=== PATIENT | female | born 1985 | race Caucasian/White ===

== ENCOUNTER → 2017-01-30 | Outpatient (CLI) | payer BC ==
[2017-01-30 17:24] LABS: HEMATOCRIT 33.8 % (36.0-47.0); HEMOGLOBIN 11.8 g/dL (12.0-15.5); HGB HCT DIFFERENCE 1.6; MEAN CORPUSCULAR HEMOGLOBIN 31.7 pg (27.0-33.4); MEAN CORPUSCULAR HGB CONC 34.9 g/dL (32.0-36.0); MEAN CORPUSCULAR VOLUME 91 fl (80-97); RED BLOOD COUNT 3.72 10^6/uL (3.72-5.28); RED CELL DISTRIBUTION WIDTH 12.6 % (11.5-14.0); WHITE BLOOD COUNT 17.2 10^3/uL (4.0-10.5)
[2017-01-30 17:47] LABS: ASPARTATE AMINO TRANSFERASE 28 U/L (14-36); CREATININE RESULT 0.69 mg/dL (0.52-1.25); LDH 457 U/L (313-618); URIC ACID 5.1 mg/dL (2.5-6.2)
== END ==
LOC: OD 16:30
PROVIDERS: ATTEND Obstetrics & Gynecology
DX: O16.9 Unspecified maternal hypertension, unspecified trimester (principal); O30.009 Twin pregnancy, unspecified number of placenta and unspecified number of amniotic sacs, unspecified trimester
CPT/HCPCS: 36415; 82565; 83615; 84450; 84550; 85027

== ENCOUNTER 2017-02-16 16:47 | Inpatient (IN) | payer BC ==
[2017-02-16 17:50] LABS: AMNISURE (ROM) POSITIVE (NEGATIVE)
[2017-02-16] MEDS ORDERED: BETAMET ACET/BETAMET NA INJ 6 MG/1 ML IM ONE (18:10)
[2017-02-16 18:25] LABS: ABSOLUTE BASOPHILS # (AUTO) 0.1 10^3/uL (0.0-0.2); ABSOLUTE EOSINOPHILS # (AUTO) 0.1 10^3/uL (0.0-0.6); ABSOLUTE LYMPHOCYTES (AUTO) 1.8 10^3/uL (0.5-4.7); ABSOLUTE MONOCYTES (AUTO) 0.6 10^3/uL (0.1-1.4); ABSOLUTE NEUT (AUTO) 11.4 10^3/uL (1.7-8.2); BASOPHILS % (AUTO) 0.4 % (0-2); EOSINOPHILS % (AUTO) 0.7 % (0-6); HEMATOCRIT 32.2 % (36.0-47.0); HEMOGLOBIN 11.3 g/dL (12.0-15.5); HGB HCT DIFFERENCE 1.7; LYMPHOCYTES % (AUTO) 13.2 % (13-45); MEAN CORPUSCULAR HEMOGLOBIN 31.3 pg (27.0-33.4); MEAN CORPUSCULAR VOLUME 89 fl (80-97); MONOCYTES % (AUTO) 4.1 % (3-13); RED BLOOD COUNT 3.61 10^6/uL (3.72-5.28); RED CELL DISTRIBUTION WIDTH 12.8 % (11.5-14.0); SEGMENTED NEUTROPHILS % (AUTO) 81.6 % (42-78)
[2017-02-16] MEDS ORDERED: MAGNESIUM SULFATE 4 GM/100 ML RTUPB IV ONE ×2 (18:25→19:07)
[2017-02-16] MEDS ORDERED: ERYTHROMYCIN INJ 500 MG VIAL IV SCH (18:30)
[2017-02-16] MEDS ORDERED: AMPICILLIN SOD INJ 2 GM VIAL IV ONE (19:00)
[2017-02-16] MEDS ORDERED: BETAMET ACET/BETAMET NA INJ 6 MG/1 ML ONE (19:07)
[2017-02-16] MEDS ORDERED: AMPICILLIN SOD INJ 2 GM VIAL ONE (19:07)
--- NOTE | 2017-02-16 19:58 | RADIOLOGY REPORT (SQ) ---
EXAM DESCRIPTION: U/S OB LIMITED COMPLETED DATE/TIME: 02/16/2017 7:25 pm REASON FOR STUDY: twin gest--Ruptured--presentation of infants pleas COMPARISON: None. TECHNIQUE: Limited transabdominal grayscale ultrasound for evaluation of specific requested obstetri anamaria parameters. LIMITATIONS: None. FINDINGS: Twin A FHR: 150 beats per minute. Vertex presentation. Twin B FHR: 141 beats per minute. Breech presentation. OTHER: No other significant findings. IMPRESSION: Twin A FHR: 150 beats per minute. Vertex presentation. Twin B FHR: 141 beats per minute . Breech presentation. Trimester of : Third trimester - 28 weeks to delivery. TECHNICAL DOCUMENTATION: JOB ID: [id number] [employer]- All Rights Reserved
[2017-02-16] MEDS ORDERED: MAGNESIUM SULFATE 20 GM/500 ML RTUINJ IV PRN (20:00)
[2017-02-16] MEDS ORDERED: ERYTHROMYCIN LACTOBIONATE 500 MG in NORMAL SALINE 100 ML IV ONE (20:00)
[2017-02-16] MEDS ORDERED: MAGNESIUM SULFATE 4 GM/D5W 100 ML IV PRN (20:00)
[2017-02-16] MEDS ORDERED: ACETAMINOPHEN 325 MG TABLET PO ONE (20:26)
[2017-02-16] MEDS ORDERED: ACETAMINOPHEN 325 MG TABLET ONE (20:29)
[2017-02-16] MEDS: MAGNESIUM SULFATE 20 GM/500 ML IV PRN (20:34)
[2017-02-16] MEDS: RINGERS SOLUTION,LACTATED 1,000 ML IV PRN (20:34)
[2017-02-16] MEDS ORDERED: ZOLPIDEM TARTRATE 5 MG TABLET PO ONE (21:29)
[2017-02-16] MEDS ORDERED: ZOLPIDEM TARTRATE 5 MG TABLET ONE ×2 (21:36→21:39)
[2017-02-17] MEDS ORDERED: AMPICILLIN SOD INJ 2 GM VIAL ONE ×4 (01:35→19:29)
[2017-02-17] MEDS: AMPICILLIN SOD INJ 2 GM VIAL IV SCH ×2 (01:39→07:39)
[2017-02-17] MEDS: RINGERS SOLUTION,LACTATED 1,000 ML IV PRN ×3 (01:40→19:53)
[2017-02-17 01:42] LABS: APPEARANCE,URINE SLIGHTLY-CLOUDY; BILIRUBIN,URINE NEGATIVE (NEGATIVE); GLUCOSE, URINE NEGATIVE (NEGATIVE); KETONES,URINE 20 mg/dL (NEGATIVE); LEUKOCYTE ESTERASE,URINE TRACE (NEGATIVE); NITRITE,URINE NEGATIVE (NEGATIVE); PROTEIN,URINE NEGATIVE (NEGATIVE); UROBILINOGEN,URINE NEGATIVE mg/dL (<2.0)
[2017-02-17] MEDS ORDERED: RINGERS SOLUTION,LACTATED 500 ML IV PRN (02:00)
[2017-02-17] MEDS ORDERED: DEXTROSE 5%-LACTATED RINGERS 1,000 ML IV PRN (02:00)
[2017-02-17 02:10] LABS: URINE BARBITURATES SCREEN NEGATIVE; URINE METHADONE SCREEN NEGATIVE; URINE OPIATES LOW NEGATIVE; URINE PHENCYCLIDINE SCREEN NEGATIVE
[2017-02-17] MEDS: MAGNESIUM SULFATE 20 GM/500 ML IV PRN (06:00)
[2017-02-17] MEDS ORDERED: ERYTHROMYCIN LACTOBIONATE 500 MG in NORMAL SALINE 100 ML IV SCH (10:00)
[2017-02-17] MEDS ORDERED: PROCHLORPERAZINE MALEATE 10 MG TABLET PO ONE (11:25)
[2017-02-17] MEDS ORDERED: ACETAMINOPHEN 325 MG TABLET PO ONE (11:25)
[2017-02-17] MEDS ORDERED: ACETAMINOPHEN 325 MG TABLET ONE (11:27)
[2017-02-17] MEDS ORDERED: PROCHLORPERAZINE MALEATE 10 MG TABLET ONE (11:27)
[2017-02-17] MEDS ORDERED: AMPICILLIN SODIUM 2 GM in NORMAL SALINE 100 ML IV SCH (18:00)
[2017-02-17] MEDS ORDERED: BETAMET ACET/BETAMET NA INJ 6 MG/1 ML IM ONE (19:00)
[2017-02-17] MEDS ORDERED: BETAMET ACET/BETAMET NA INJ 6 MG/1 ML ONE (19:29)
[2017-02-18] MEDS ORDERED: AMPICILLIN SOD INJ 2 GM VIAL ONE (01:25)
[2017-02-18 06:14] LABS: HEMATOCRIT 30.4 % (36.0-47.0); HEMOGLOBIN 10.4 g/dL (12.0-15.5); HGB HCT DIFFERENCE 0.8; MEAN CORPUSCULAR HEMOGLOBIN 30.5 pg (27.0-33.4); MEAN CORPUSCULAR HGB CONC 34.2 g/dL (32.0-36.0); MEAN CORPUSCULAR VOLUME 89 fl (80-97); RED CELL DISTRIBUTION WIDTH 12.9 % (11.5-14.0); WHITE BLOOD COUNT 21.3 10^3/uL (4.0-10.5)
--- NOTE | 2017-02-18 06:14 | L&D Progress Notes ---
PROGRESS NOTES Datetime Report Generated by CPN: 02/18/2017 06:14 PROGRESS NOTE Impression: Reassuring Heart Rate; Premature Rupture of Membranes Plan: Continue Present Management Vital Signs : Reviewed; Within Normal Limits Comment: Fetus B with 120s moderate age appropriate variability. [facility] ACS protocol complete at 1930 last night. irregular contractions only. VS stable with no evidence of fever. Will transfer to floor. d/w patient regarding plan to continue hospitalization and deliver at 34 weeks unless labor initiates prior. discussed possibility of c/section vs attempting vaginal delivery. Patient to consider. MEMBRANES [place] Results: Positive Membranes: Ruptured Amniotic Fluid Color: Clear FETUS A FHR - Baseline: 130 Monitoring: External US Variability: Moderate 6-25bpm Accelerations: 15X15 Decelerations: None : 32.1 Presentation: Vertex SIGNATURE SIGNATURE: [id number] Signature: with User ID: [email or web address]
[2017-02-18 06:34] LABS: BAND NEUTROPHILS % (MANUAL) 2 % (3-5); BASOPHILS % (MANUAL) 0 % (0-2); EOSINOPHILS % (MANUAL) 0 % (0-6); LYMPHOCYTES % (MANUAL) 10 % (13-45); TOTAL CELLS COUNTED 100
[2017-02-18 06:35] LABS: RBC MORPHOLOGY COMMENT NORMO-CYTIC/CHROMIC; TOXIC GRANULATION SLIGHT; TOXIC VACUOLATION PRESENT
[2017-02-18] MEDS ORDERED: AMOXICILLIN TRIHYD 250 MG/5 ML SUSP 80 ML PO ONE (11:30)
[2017-02-18] MEDS ORDERED: AZITHROMYCIN 250 MG TABLET PO ONE (11:30)
[2017-02-18] MEDS: AMOXICILLIN TRIHYD 250 MG/5 ML SUSP 80 ML PO SCH (21:29)
[2017-02-18] MEDS: AZITHROMYCIN 250 MG TABLET PO SCH (21:30)
[2017-02-19 06:10] LABS: HEMATOCRIT 26.2 % (36.0-47.0); HEMOGLOBIN 9.2 g/dL (12.0-15.5); HGB HCT DIFFERENCE 1.4; MEAN CORPUSCULAR HEMOGLOBIN 31.2 pg (27.0-33.4); MEAN CORPUSCULAR HGB CONC 34.9 g/dL (32.0-36.0); MEAN CORPUSCULAR VOLUME 89 fl (80-97); RED BLOOD COUNT 2.94 10^6/uL (3.72-5.28); RED CELL DISTRIBUTION WIDTH 12.9 % (11.5-14.0); WHITE BLOOD COUNT 18.6 10^3/uL (4.0-10.5)
[2017-02-19 06:46] LABS: BASOPHILS % (MANUAL) 0 % (0-2); EOSINOPHILS % (MANUAL) 0 % (0-6); LYMPHOCYTES % (MANUAL) 8 % (13-45); TOTAL CELLS COUNTED 100
[2017-02-19 06:49] LABS: BURR CELLS 1+; TOXIC GRANULATION SLIGHT
[2017-02-19] MEDS ORDERED: MAG HYDROX/AL HYDROX/SIMETH SUSP 30 ML UDCUP PO PRN (08:18)
[2017-02-19] MEDS: AZITHROMYCIN 250 MG TABLET PO SCH ×2 (09:44→22:14)
[2017-02-19] MEDS: AMOXICILLIN TRIHYD 250 MG/5 ML SUSP 80 ML PO SCH ×2 (09:45→22:16)
--- NOTE | 2017-02-19 11:38 | PDOC PROGRESS REPORT ---
Subjective Progress Note for:: 02/19/17 Subjective:: doing well. unsure if she is still leaking fluid but feels that there may be some leakage at micturation. Physical Exam - Physical Exam Vital Signs: Temp Pulse Resp BP Pulse Ox 98.7 F 81 17 116/63 98 02/19/17 07:49 02/19/17 07:49 02/19/17 07:49 02/19/17 07:49 02/19/17 07:49 Intake & Output 02/18/17 02/19/17 02/20/17 07:59 06:59 06:59 Intake Total Balance General appearance: PRESENT: no acute distress - Obstetrical Exam Fundal Height: 3/u - 4/u Tender: No Result Laboratory Results: 02/19/17 05:56 02/19/17 05:56 WBC 18.6 H RBC 2.94 L Hgb 9.2 L Hct 26.2 L MCV 89 MCH 31.2 MCHC 34.9 RDW 12.9 Plt Count 239 Seg Neutrophils % Not Reportable Lymphocytes % Not Reportable Monocytes % Not Reportable Eosinophils % Not Reportable Basophils % Not Reportable Absolute Neutrophils Not Reportable Absolute Lymphocytes Not Reportable Absolute Monocytes Not Reportable Absolute Eosinophils Not Reportable Absolute Basophils Not Reportable 02/17/17 01:20 Parrish Catheter Urine Culture - Final NO GROWTH 2 DAYS Impressions: Obstetrics Ultrasound 02/16/17 00:00 IMPRESSION: Twin A FHR: 150 beats per minute. Vertex presentation. Twin B FHR : 141 beats per minute. Breech presentation. Trimester of : Third trimester - 28 weeks to delivery. Assessment & Plan - Inpatient Certification Based on my medical assessment, after consideration of the patient's comorbidities, presenting symptoms, or acuity I expect that the services needed warrant INPATIENT care.: Yes I certify that my determination is in accordance with my understanding of Medicare's requirements for reasonable and necessary INPATIENT services [42 CFR 412.3e].: Yes Medical Necessity: Need Close Monitoring Due to Risk of Patient Decompensation, Risk of Complication if Not Cared For in Hospital - Plan Summary Plan Summary: continue with monitoring and plan for delivery at 34 weeks. will get repeat LUPE to monitor fluids and presentation
--- NOTE | 2017-02-20 09:01 | PDOC PROGRESS REPORT ---
Subjective Subjective:: Pt reports no ctx's, occ leaking of clear fluid, no bleeding Reports good movement Physical Exam - Physical Exam Vital Signs: Temp Pulse Resp BP Pulse Ox 98.3 F 70 17 124/77 98 02/20/17 07:55 02/20/17 07:55 02/20/17 07:55 02/20/17 07:55 02/20/17 07:55 Intake & Output 02/19/17 02/20/17 02/21/17 06:59 06:59 06:59 Intake Total 800 Balance 800 General appearance: PRESENT: no acute distress, cooperative, well-developed GI/Abdominal exam: PRESENT: normal bowel sounds - Abdomen is nontender, soft Result Laboratory Results: 02/19/17 05:56 02/17/17 01:20 Parrish Catheter Urine Culture - Final NO GROWTH 2 DAYS Impressions: Obstetrics Ultrasound 02/16/17 00:00 IMPRESSION: Twin A FHR: 150 beats per minute. Vertex presentation. Twin B FHR : 141 beats per minute. Breech presentation. Trimester of : Third trimester - 28 weeks to delivery. Assessment & Plan - Diagnosis (1) Twin gestation in third trimester Qualifiers: Multiple gestation type: dichorionic and diamniotic Qualified Code(s): O30.043 - Twin , dichorionic/diamniotic, third trimester Is this a current diagnosis for this admission?: Yes (2) premature rupture of membranes Qualifiers: PROM onset of labor timing: unspecified duration between rupture of membranes and onset of labor Qualified Code(s): O42.919 - premature rupture of membranes, unspecified as to length of time between rupture and onset of labor, unspecified trimester Is this a current diagnosis for this admission?: Yes - Time Time Spent with patient: Less than 15 minutes Medications reviewed and adjusted accordingly: Yes Anticipated discharge: Other - Will check CBC, continue Abx Continue to moniter closely
[2017-02-20] MEDS: AZITHROMYCIN 250 MG TABLET PO SCH ×2 (11:08→21:06)
[2017-02-20] MEDS: AMOXICILLIN TRIHYD 250 MG/5 ML SUSP 80 ML PO SCH ×2 (11:08→21:06)
--- NOTE | 2017-02-20 12:22 | RADIOLOGY REPORT (SQ) ---
EXAM DESCRIPTION: U/S OB LIMITED COMPLETED DATE/TIME: 02/20/2017 11:05 am REASON FOR STUDY: repeat LUPE of both twins and presentations COMPARISON: 02/16/2017 TECHNIQUE: Limited transvaginal grayscale ultrasound for evaluation of specific requested obstetrica l parameters. LIMITATIONS: None. FINDINGS: Twin A heart rate 153, vertex presentation. Largest fluid pocket 3.0 cm. Twin B fe svetlana heart rate 155, breech presentation. Largest fluid pocket 6.1 cm. IMPRESSION: LIMITED OBSTETRICAL ULTRASOUND WITH MEASURED PARAMETERS DELINEATED ABOVE. Trimester of : Third trimester - 28 weeks to delivery. TECHNICAL DOCUMENTATION: JOB ID: [id number] [employer]- All Rights Reserved
[2017-02-21] MEDS: AMOXICILLIN TRIHYD 250 MG/5 ML SUSP 80 ML PO SCH ×2 (10:44→21:19)
[2017-02-21] MEDS: AZITHROMYCIN 250 MG TABLET PO SCH ×2 (10:46→21:19)
--- NOTE | 2017-02-21 12:21 | RADIOLOGY REPORT (SQ) ---
EXAM DESCRIPTION: U/S PROFILE W/O STRESS COMPLETED DATE/TIME: 02/21/2017 12:03 pm REASON FOR STUDY: twin preg. unable to obtain reac. NST needs BPP - FETUS A; NR NST - FETUS B COMPARISON: 02/20/2017, 02/16/2017 OB ultrasounds TECHNIQUE: Limited singh-scale realtime and static images of the twin fetuses to measure specified pa rameters. LIMITATIONS: None. FINDINGS: BABY A: Maternal left, cephalic/transverse orientation HEART RATE: 133 beats per minute. LUPE: Largest pocket 6.4 cm BREATHING MOVEMENT: 2 points. MOVEMENT: 2 points. POSTURE AND TONE: 2 points. QUALITATIVE LUPE: 2 points. BABY B: Maternal right, breech orientation HEART RATE: 143 beats per minute. LUPE: Largest pocket 4.8 cm. BREATHING MOVEMENT: 2 points. MOVEMENT: 2 points. POSTURE AND TONE: 2 points. QUALITATIVE LUPE: 2 points. OTHER: No other significant finding. IMPRESSION: BOTH TWIN FETUSES BIOPHYSICAL PROFILE: 8/8. Trimester of : Third - 28 weeks to delivery COMMENT: BREATHING MOVEMENTS: 2 POINTS: PRESENT 0 POINTS: ABSENT MOTION: 2 POINTS: PRESENT 0 POINTS: ABSENT TONE: 2 POINTS: PRESENT 0 POINTS: ABSENT AMNIOTIC FLUID VOLUME: 2 POINTS: LARGEST POCKET GREATER THAN 2 CM DEPTH. 0 POINTS: NO POCKET OF 2 CM. TECHNICAL DOCUMENTATION: JOB ID: [id number] [employer]- All Rights Reserved
--- NOTE | 2017-02-21 12:33 | PDOC PROGRESS REPORT ---
Subjective Progress Note for:: 02/21/17 Subjective:: 31yo PPROM. Denies contractions, bleeding or Leaking of fluid today. Reports +FM. No concerns at this time. Physical Exam - Physical Exam Vital Signs: Temp Pulse Resp BP Pulse Ox 97.8 F 75 15 114/77 98 02/21/17 07:29 02/21/17 07:29 02/21/17 07:29 02/21/17 07:29 02/21/17 07:29 Intake & Output 02/20/17 02/21/17 02/22/17 06:59 06:59 06:59 Intake Total 800 1000 Balance 800 1000 General appearance: PRESENT: no acute distress Focused psych exam: PRESENT: other - abdomen-soft, nontender, movement noted Result Laboratory Results: 02/19/17 05:56 Impressions: Obstetrics Ultrasound 02/20/17 11:38 IMPRESSION: LIMITED OBSTETRICAL ULTRASOUND WITH MEASURED PARAMETERS DELINEATED ABOVE. Trimester of : Third trimester - 28 weeks to delivery. Stress Test 02/21/17 00:00 IMPRESSION: BOTH TWIN FETUSES BIOPHYSICAL PROFILE: 11/22. Trimester of : Third - 28 weeks to delivery Assessment & Plan - Diagnosis (1) Twin gestation in third trimester Qualifiers: Multiple gestation type: dichorionic and diamniotic Qualified Code(s): O30.043 - Twin , dichorionic/diamniotic, third trimester Is this a current diagnosis for this admission?: Yes Plan: plan is to continue inpatient status until 34w and deliver at that time or earlier prn. Unable to obtain reactive NST, will proceed to u/s for BPPs (2) premature rupture of membranes Qualifiers: PROM onset of labor timing: unspecified duration between rupture of membranes and onset of labor Qualified Code(s): O42.919 - premature rupture of membranes, unspecified as to length of time between rupture and onset of labor, unspecified trimester Is this a current diagnosis for this admission?: Yes Plan: continue daily CBCs, antibiotics and monitoring for s/s of infection/cord prolapse/labor
--- NOTE | 2017-02-22 09:41 | PDOC PROGRESS REPORT ---
Subjective Progress Note for:: 02/22/17 Subjective:: She reports positive movement and that her abdomen is not tender. Physical Exam - Physical Exam Vital Signs: Temp Pulse Resp BP Pulse Ox 97.8 F 77 18 122/77 98 02/22/17 07:47 02/22/17 07:47 02/22/17 07:47 02/22/17 07:47 02/22/17 07:47 Intake & Output 02/21/17 02/22/17 02/23/17 06:59 06:59 06:59 Intake Total 1000 350 Balance 1000 350 General appearance: PRESENT: no acute distress - Abdomen is gravid and nontender , well-developed, well-nourished Result Laboratory Results: 02/19/17 05:56 Impressions: Obstetrics Ultrasound 02/20/17 11:38 IMPRESSION: LIMITED OBSTETRICAL ULTRASOUND WITH MEASURED PARAMETERS DELINEATED ABOVE. Trimester of : Third trimester - 28 weeks to delivery. Stress Test 02/21/17 00:00 IMPRESSION: BOTH TWIN FETUSES BIOPHYSICAL PROFILE: 11/22. Trimester of : Third - 28 weeks to delivery Assessment & Plan - Diagnosis (1) premature rupture of membranes Qualifiers: PROM onset of labor timing: unspecified duration between rupture of membranes and onset of labor Qualified Code(s): O42.919 - premature rupture of membranes, unspecified as to length of time between rupture and onset of labor, unspecified trimester Is this a current diagnosis for this admission?: Yes (2) Twin gestation in third trimester Qualifiers: Multiple gestation type: dichorionic and diamniotic Qualified Code(s): O30.043 - Twin , dichorionic/diamniotic, third trimester Is this a current diagnosis for this admission?: Yes Plan: We plan expectant management and Iv antibiotics. Deliver at 34 wks or earlier if she develops an obstetric indication to deliver. - Time Time Spent with patient: Less than 15 minutes
[2017-02-22] MEDS: AZITHROMYCIN 250 MG TABLET PO SCH ×2 (09:43→21:15)
[2017-02-22] MEDS: AMOXICILLIN TRIHYD 250 MG/5 ML SUSP 80 ML PO SCH ×2 (09:44→21:27)
--- NOTE | 2017-02-22 12:05 | RADIOLOGY REPORT (SQ) ---
EXAM DESCRIPTION: U/S PROFILE W/O STRESS COMPLETED DATE/TIME: 02/22/2017 11:53 am REASON FOR STUDY: BPP/ BABY A COMPARISON: None. TECHNIQUE: Limited singh-scale realtime and static images of the fetus to measure specified parameter s. LIMITATIONS: None. FINDINGS: HEART RATE: 137 beats per minute. LUPE: Largest pocket 3.5 cm. BREATHING MOVEMENT: 2 points. MOVEMENT: 2 points. POSTURE AND TONE: 2 points. QUALITATIVE LUPE: 2 points. OTHER: Vertex presentation. IMPRESSION: BIOPHYSICAL PROFILE: 11/22. Trimester of : Third - 28 weeks to delivery COMMENT: BREATHING MOVEMENTS: 2 POINTS: PRESENT 0 POINTS: ABSENT MOTION: 2 POINTS: PRESENT 0 POINTS: ABSENT TONE: 2 POINTS: PRESENT 0 POINTS: ABSENT AMNIOTIC FLUID VOLUME: 2 POINTS: LARGEST POCKET GREATER THAN 2 CM DEPTH. 0 POINTS: NO POCKET OF 2 CM. TECHNICAL DOCUMENTATION: JOB ID: [id number] [employer]- All Rights Reserved
--- NOTE | 2017-02-22 12:05 | RADIOLOGY REPORT (SQ) ---
EXAM DESCRIPTION: U/S PROFILE W/O STRESS COMPLETED DATE/TIME: 02/22/2017 11:53 am REASON FOR STUDY: BPP/ BABY B COMPARISON: None. TECHNIQUE: Limited singh-scale realtime and static images of the fetus to measure specified parameter s. LIMITATIONS: None. FINDINGS: HEART RATE: 132 beats per minute. LUPE: Largest pocket 4.0 cm. BREATHING MOVEMENT: 2 points. MOVEMENT: 2 points. POSTURE AND TONE: 2 points. QUALITATIVE LUPE: 2 points. OTHER: Transverse presentation. IMPRESSION: BIOPHYSICAL PROFILE: 11/22. Trimester of : Third - 28 weeks to delivery COMMENT: BREATHING MOVEMENTS: 2 POINTS: PRESENT 0 POINTS: ABSENT MOTION: 2 POINTS: PRESENT 0 POINTS: ABSENT TONE: 2 POINTS: PRESENT 0 POINTS: ABSENT AMNIOTIC FLUID VOLUME: 2 POINTS: LARGEST POCKET GREATER THAN 2 CM DEPTH. 0 POINTS: NO POCKET OF 2 CM. TECHNICAL DOCUMENTATION: JOB ID: [id number] [employer]- All Rights Reserved
--- NOTE | 2017-02-23 09:01 | PDOC PROGRESS REPORT ---
Subjective Progress Note for:: 02/23/17 Subjective:: Pt doing well no complaints Physical Exam - Physical Exam Vital Signs: Temp Pulse Resp BP Pulse Ox 98.4 F 78 16 118/86 H 100 02/23/17 07:56 02/23/17 07:56 02/23/17 07:56 02/23/17 07:56 02/23/17 07:56 Intake & Output 02/22/17 02/23/17 02/24/17 06:59 06:59 06:59 Intake Total 350 240 Balance 350 240 General appearance: PRESENT: no acute distress Result Laboratory Results: 02/19/17 05:56 Impressions: Obstetrics Ultrasound 02/20/17 11:38 IMPRESSION: LIMITED OBSTETRICAL ULTRASOUND WITH MEASURED PARAMETERS DELINEATED ABOVE. Trimester of : Third trimester - 28 weeks to delivery. Stress Test 02/22/17 00:00 IMPRESSION: BIOPHYSICAL PROFILE: 11/22. Trimester of : Third - 28 weeks to delivery Assessment & Plan - Diagnosis (1) premature rupture of membranes Qualifiers: PROM onset of labor timing: unspecified duration between rupture of membranes and onset of labor Qualified Code(s): O42.919 - premature rupture of membranes, unspecified as to length of time between rupture and onset of labor, unspecified trimester Is this a current diagnosis for this admission?: Yes Plan: expectant management (2) Twin gestation in third trimester Qualifiers: Multiple gestation type: dichorionic and diamniotic Qualified Code(s): O30.043 - Twin , dichorionic/diamniotic, third trimester Is this a current diagnosis for this admission?: Yes Plan: SAB - Time Time Spent with patient: Less than 15 minutes
[2017-02-23] MEDS: AZITHROMYCIN 250 MG TABLET PO SCH ×2 (09:58→21:32)
[2017-02-23] MEDS: AMOXICILLIN TRIHYD 250 MG/5 ML SUSP 80 ML PO SCH ×2 (10:00→21:32)
--- NOTE | 2017-02-24 08:55 | PDOC PROGRESS REPORT ---
Subjective Subjective:: Pt reports no ctx's, vb or lof Reports good movement No new compaints Physical Exam - Physical Exam Vital Signs: Temp Pulse Resp BP Pulse Ox 98.1 F 87 16 122/80 99 02/24/17 07:48 02/24/17 07:48 02/24/17 07:48 02/24/17 07:48 02/24/17 07:48 Intake & Output 02/23/17 02/24/17 02/25/17 06:59 06:59 06:59 Intake Total 240 300 Balance 240 300 General appearance: PRESENT: no acute distress, cooperative, well-developed GI/Abdominal exam: PRESENT: soft - Abd in nontender Result Laboratory Results: 02/19/17 05:56 Impressions: Obstetrics Ultrasound 02/20/17 11:38 IMPRESSION: LIMITED OBSTETRICAL ULTRASOUND WITH MEASURED PARAMETERS DELINEATED ABOVE. Trimester of : Third trimester - 28 weeks to delivery. Stress Test 02/22/17 00:00 IMPRESSION: BIOPHYSICAL PROFILE: 11/22. Trimester of : Third - 28 weeks to delivery Assessment & Plan - Diagnosis (1) Twin gestation in third trimester Qualifiers: Multiple gestation type: dichorionic and diamniotic Qualified Code(s): O30.043 - Twin , dichorionic/diamniotic, third trimester Is this a current diagnosis for this admission?: Yes (2) premature rupture of membranes Qualifiers: PROM onset of labor timing: unspecified duration between rupture of membranes and onset of labor Qualified Code(s): O42.919 - premature rupture of membranes, unspecified as to length of time between rupture and onset of labor, unspecified trimester Is this a current diagnosis for this admission?: Yes - Time Time Spent with patient: Less than 15 minutes Medications reviewed and adjusted accordingly: Yes Anticipated discharge: Other Within: Other - Will contiunue to Disposition: Will continue roberto chang
[2017-02-24] MEDS: AMOXICILLIN TRIHYD 250 MG/5 ML SUSP 80 ML PO SCH ×2 (09:48→22:03)
[2017-02-24] MEDS: AZITHROMYCIN 250 MG TABLET PO SCH ×2 (09:49→21:59)
[2017-02-25] MEDS: AMOXICILLIN TRIHYD 250 MG/5 ML SUSP 80 ML PO SCH (10:27)
[2017-02-25] MEDS: AZITHROMYCIN 250 MG TABLET PO SCH (10:27)
[2017-02-25 11:09] LABS: MEAN CORPUSCULAR HEMOGLOBIN 30.5 pg (27.0-33.4); MEAN CORPUSCULAR HGB CONC 34.3 g/dL (32.0-36.0); MEAN CORPUSCULAR VOLUME 89 fl (80-97); RED BLOOD COUNT 3.26 10^6/uL (3.72-5.28); RED CELL DISTRIBUTION WIDTH 13.1 % (11.5-14.0); WHITE BLOOD COUNT 13.9 10^3/uL (4.0-10.5)
[2017-02-25 11:39] LABS: BASOPHILS % (MANUAL) 0 % (0-2); EOSINOPHILS % (MANUAL) 0 % (0-6); LYMPHOCYTES % (MANUAL) 12 % (13-45); TOTAL CELLS COUNTED 100
[2017-02-25 11:42] LABS: OVALOCYTES SLIGHT; POIKILOCYTOSIS SLIGHT; TOXIC GRANULATION 1+
[2017-02-26 06:30] LABS: HEMATOCRIT 28.9 % (36.0-47.0); HEMOGLOBIN 10.1 g/dL (12.0-15.5); HGB HCT DIFFERENCE 1.4; MEAN CORPUSCULAR HEMOGLOBIN 30.9 pg (27.0-33.4); MEAN CORPUSCULAR HGB CONC 34.9 g/dL (32.0-36.0); MEAN CORPUSCULAR VOLUME 89 fl (80-97); RED BLOOD COUNT 3.27 10^6/uL (3.72-5.28); RED CELL DISTRIBUTION WIDTH 13.5 % (11.5-14.0); WHITE BLOOD COUNT 13.9 10^3/uL (4.0-10.5)
[2017-02-26 06:59] LABS: BASOPHILS % (MANUAL) 0 % (0-2); EOSINOPHILS % (MANUAL) 1 % (0-6); LYMPHOCYTES % (MANUAL) 12 % (13-45); TOTAL CELLS COUNTED 100
[2017-02-26 07:02] LABS: OVALOCYTES 1+; PLATELET CLUMPS PRESENT; POLYCHROMASIA 1+; SCHISTOCYTES 1+; TOXIC GRANULATION 1+
--- NOTE | 2017-02-27 17:09 | RADIOLOGY REPORT (SQ) ---
EXAM DESCRIPTION: U/S PROFILE W/O STRESS COMPLETED DATE/TIME: 02/27/2017 4:52 pm REASON FOR STUDY: BPP/BABY A COMPARISON: None. TECHNIQUE: Limited singh-scale realtime and static images of the fetus to measure specified parameter s. LIMITATIONS: None. FINDINGS: HEART RATE: 145 beats per minute. LUPE: 6.0 cm. BREATHING MOVEMENT: 0 points. MOVEMENT: 2 points. POSTURE AND TONE: 2 points. QUALITATIVE LUPE: 2 points. OTHER: Vertex presentation IMPRESSION: BIOPHYSICAL PROFILE: 8. Trimester of : Third - 28 weeks to delivery COMMENT: BREATHING MOVEMENTS: 2 POINTS: PRESENT 0 POINTS: ABSENT MOTION: 2 POINTS: PRESENT 0 POINTS: ABSENT TONE: 2 POINTS: PRESENT 0 POINTS: ABSENT AMNIOTIC FLUID VOLUME: 2 POINTS: LARGEST POCKET GREATER THAN 2 CM DEPTH. 0 POINTS: NO POCKET OF 2 CM. TECHNICAL DOCUMENTATION: JOB ID: [id number] [employer] All Rights Reserved
--- NOTE | 2017-02-27 17:18 | RADIOLOGY REPORT (SQ) ---
EXAM DESCRIPTION: U/S PROFILE W/O STRESS COMPLETED DATE/TIME: 02/27/2017 4:52 pm REASON FOR STUDY: BPP/ BABY B COMPARISON: None. TECHNIQUE: Limited singh-scale realtime and static images of the fetus to measure specified parameter s. LIMITATIONS: None. FINDINGS: HEART RATE: 121 beats per minute. LUPE: Adequate cm. BREATHING MOVEMENT: 2 points. MOVEMENT: 2 points. POSTURE AND TONE: 2 points. QUALITATIVE LUPE: 2 points. OTHER: No other significant finding. IMPRESSION: BIOPHYSICAL PROFILE: 11/22. Trimester of : Third - 28 weeks to delivery COMMENT: BREATHING MOVEMENTS: 2 POINTS: PRESENT 0 POINTS: ABSENT MOTION: 2 POINTS: PRESENT 0 POINTS: ABSENT TONE: 2 POINTS: PRESENT 0 POINTS: ABSENT AMNIOTIC FLUID VOLUME: 2 POINTS: LARGEST POCKET GREATER THAN 2 CM DEPTH. 0 POINTS: NO POCKET OF 2 CM. TECHNICAL DOCUMENTATION: JOB ID: [id number] [employer]- All Rights Reserved
[2017-02-28 07:14] LABS: ABSOLUTE EOSINOPHILS # (AUTO) 0.1 10^3/uL (0.0-0.6); ABSOLUTE MONOCYTES (AUTO) 0.8 10^3/uL (0.1-1.4)
[2017-02-28 07:22] LABS: ABSOLUTE LYMPHOCYTES (AUTO) 1.8 10^3/uL (0.5-4.7); ABSOLUTE NEUT (AUTO) 10.4 10^3/uL (1.7-8.2); BASOPHILS % (AUTO) 0.2 % (0-2); EOSINOPHILS % (AUTO) 0.9 % (0-6); MEAN CORPUSCULAR HEMOGLOBIN 30.4 pg (27.0-33.4); MEAN CORPUSCULAR HGB CONC 34.3 g/dL (32.0-36.0); MEAN CORPUSCULAR VOLUME 89 fl (80-97); MONOCYTES % (AUTO) 6.2 % (3-13); RED BLOOD COUNT 3.27 10^6/uL (3.72-5.28); RED CELL DISTRIBUTION WIDTH 13.4 % (11.5-14.0); SEGMENTED NEUTROPHILS % (AUTO) 78.7 % (42-78); WHITE BLOOD COUNT 13.2 10^3/uL (4.0-10.5)
--- NOTE | 2017-02-28 07:33 | PDOC PROGRESS REPORT ---
Subjective Progress Note for:: 02/27/17 Subjective:: c/o leaking fluid with each ambulation out of bed and with movement. FLuid is still clear. Denies abd pain. Physical Exam - Physical Exam Vital Signs: Temp Pulse Resp BP Pulse Ox 98.1 F 122 H 16 135/87 H 99 02/27/17 11:35 02/27/17 11:35 02/27/17 11:35 02/27/17 11:35 02/27/17 11:35 Intake & Output 02/26/17 02/27/17 02/28/17 06:59 06:59 06:59 Intake Total 980 1000 Balance 980 1000 General appearance: PRESENT: no acute distress, well-developed, well-nourished Head exam: PRESENT: atraumatic, normocephalic Respiratory exam: PRESENT: clear to auscultation irma, symmetrical, unlabored. ABSENT: tachypnea, wheezes Cardiovascular exam: PRESENT: RRR. ABSENT: diastolic murmur, rubs, systolic murmur Pulses: PRESENT: normal dorsalis pedis pul, +2 pedal pulses bilateral Vascular exam: PRESENT: normal capillary refill GI/Abdominal exam: PRESENT: normal bowel sounds, soft. ABSENT: distended, guarding, mass, organolmegaly, rebound, tenderness Rectal exam: PRESENT: deferred Extremities exam: PRESENT: full ROM. ABSENT: calf tenderness, clubbing, pedal edema Musculoskeletal exam: PRESENT: ambulatory Neurological exam: PRESENT: alert, awake, oriented to person, oriented to place , oriented to time, oriented to situation, CN II-XII grossly intact. ABSENT: motor sensory deficit Psychiatric exam: PRESENT: appropriate affect, normal mood. ABSENT: homicidal ideation, suicidal ideation Skin exam: PRESENT: dry, intact, warm. ABSENT: cyanosis, rash Result Laboratory Results: 02/26/17 05:42 Impressions: Obstetrics Ultrasound 02/20/17 11:38 IMPRESSION: LIMITED OBSTETRICAL ULTRASOUND WITH MEASURED PARAMETERS DELINEATED ABOVE. Trimester of : Third trimester - 28 weeks to delivery. Stress Test 02/22/17 00:00 IMPRESSION: BIOPHYSICAL PROFILE: 11/22. Trimester of : Third - 28 weeks to delivery Status: Imported from PACS Assessment & Plan - Diagnosis (1) premature rupture of membranes Qualifiers: PROM onset of labor timing: unspecified duration between rupture of membranes and onset of labor Qualified Code(s): O42.919 - premature rupture of membranes, unspecified as to length of time between rupture and onset of labor, unspecified trimester Is this a current diagnosis for this admission?: Yes Plan: Pt with TIUP at 33+3ega, will be 34wks on Saturday 03/03. Due to PPROM would recommend delivery - patient was told that she may have resealed over the weekend but case d/w MFM and recommendations made to proceed with delivery at 34wks. REviewed with pt that since still leaking that would recommend delivery at 34wks. Vtx/breech on last US. She was counseled regarding options for delivery vaginal vs c/s. She desires Vaginal delivery. Growth and presentation US ordered for today - was ordered improperly and therefore re-ordered for tomorrow. (2) Twin gestation in third trimester Qualifiers: Multiple gestation type: dichorionic and diamniotic Qualified Code(s): O30.043 - Twin , dichorionic/diamniotic, third trimester Is this a current diagnosis for this admission?: Yes Plan: Needs growth and presentation US - Time Time Spent with patient: 25-34 minutes Critical Time spent with patient: Less than 15 minutes Medications reviewed and adjusted accordingly: Yes Anticipated discharge: Home Within: Other - after delivery - Inpatient Certification Based on my medical assessment, after consideration of the patient's comorbidities, presenting symptoms, or acuity I expect that the services needed warrant INPATIENT care.: Yes I certify that my determination is in accordance with my understanding of Medicare's requirements for reasonable and necessary INPATIENT services [42 CFR 412.3e].: Yes Medical Necessity: Need Close Monitoring Due to Risk of Patient Decompensation, Risk of Complication if Not Cared For in Hospital, Risk of Diagnosis Which Will Require Inpatient Eval/Care/Monitoring
--- NOTE | 2017-02-28 09:15 | PDOC PROGRESS REPORT ---
Physical Exam - Physical Exam Vital Signs: Temp Pulse Resp BP Pulse Ox 97.3 F 95 18 121/79 99 02/28/17 08:33 02/28/17 08:33 02/28/17 08:33 02/28/17 08:33 02/28/17 08:33 Intake & Output 02/27/17 02/28/17 03/01/17 06:59 06:59 06:59 Intake Total 1000 940 Balance 1000 940 General appearance: PRESENT: no acute distress - Obstetrical Exam Vagina: normal Dilation (cm): 3 Effacement (%): 90 Station: +2 Tender: No Adhexa: normal Result Laboratory Results: 02/28/17 06:50 02/28/17 06:50 WBC 13.2 H RBC 3.27 L Hgb 10.0 L Hct 29.0 L MCV 89 MCH 30.4 MCHC 34.3 RDW 13.4 Plt Count 294 Seg Neutrophils % 78.7 H Lymphocytes % 14.0 Monocytes % 6.2 Eosinophils % 0.9 Basophils % 0.2 Absolute Neutrophils 10.4 H Absolute Lymphocytes 1.8 Absolute Monocytes 0.8 Absolute Eosinophils 0.1 Absolute Basophils 0.0 Impressions: Stress Test 02/27/17 00:00 IMPRESSION: BIOPHYSICAL PROFILE: 11/22. Trimester of : Third - 28 weeks to delivery Assessment & Plan - Diagnosis (1) premature rupture of membranes Qualifiers: PROM onset of labor timing: unspecified duration between rupture of membranes and onset of labor Qualified Code(s): O42.919 - premature rupture of membranes, unspecified as to length of time between rupture and onset of labor, unspecified trimester Is this a current diagnosis for this admission?: Yes (2) Twin gestation in third trimester Qualifiers: Multiple gestation type: dichorionic and diamniotic Qualified Code(s): O30.043 - Twin , dichorionic/diamniotic, third trimester Is this a current diagnosis for this admission?: Yes
[2017-02-28] MEDS: ACETAMINOPHEN 325 MG TABLET PO PRN ×2 (09:31→19:33)
--- NOTE | 2017-02-28 09:39 | RADIOLOGY REPORT (SQ) ---
EXAM DESCRIPTION: U/S 45274 + EACH ADDIT GEST COMPLETE DATE/TIME: 02/28/2017 9:15 am REASON FOR STUDY: Need presentation, EFW, LUPE FINDINGS: Please see combined report for performance of procedure and radiologic supervision and int erpretation. IMPRESSION: Please see combined report for performance of procedure and radiologic supervision and i nterpretation.
--- NOTE | 2017-02-28 09:39 | RADIOLOGY REPORT (SQ) ---
EXAM DESCRIPTION: U/S OB LIMITED COMPLETED DATE/TIME: 02/28/2017 9:15 am REASON FOR STUDY: Need Presentation, EFW, LUPE, TIUP COMPARISON: 02/27/2017 TECHNIQUE: Limited transabdominal grayscale ultrasound for evaluation of specific requested obstetri anamaria parameters. LIMITATIONS: None. FINDINGS: LUPE: Largest pocket 3.5 cm for twin a and 7.7 cm for twin B FHR: 152 and 143 beats per minute. PRESENTATION: Twin a cephalic and twin B breech OTHER: Estimated weight for twin a 1859 +/- 275 g. estimated weight for twin B 1568 +/- 2 32 g. estimated gestational age is 32 weeks IMPRESSION: LIMITED OBSTETRICAL ULTRASOUND WITH MEASURED PARAMETERS DELINEATED ABOVE. Trimester of : Third trimester - 28 weeks to delivery. TECHNICAL DOCUMENTATION: JOB ID: [id number] [employer]- All Rights Reserved
--- NOTE | 2017-03-01 10:25 | PDOC PROGRESS REPORT ---
Subjective Progress Note for:: 03/01/17 Subjective:: She reports good movement today. She denies fevers and contractions. She is still leaking fluid. Physical Exam - Physical Exam Vital Signs: Temp Pulse Resp BP Pulse Ox 98.2 F 91 16 122/78 99 03/01/17 07:37 03/01/17 07:37 03/01/17 07:37 03/01/17 07:37 03/01/17 07:37 Intake & Output 02/28/17 03/01/17 03/02/17 06:59 06:59 06:59 Intake Total 940 Balance 940 General appearance: PRESENT: no acute distress - gravid abdomen and nontender, well-developed, well-nourished - Obstetrical Exam Vagina: normal Station: +2 Adhexa: normal Result Laboratory Results: 02/28/17 06:50 Impressions: Stress Test 02/27/17 00:00 IMPRESSION: BIOPHYSICAL PROFILE: 6/8. Trimester of : Third - 28 weeks to delivery Obstetrics Ultrasound 02/28/17 08:00 IMPRESSION: LIMITED OBSTETRICAL ULTRASOUND WITH MEASURED PARAMETERS DELINEATED ABOVE. Trimester of : Third trimester - 28 weeks to delivery. Assessment & Plan - Diagnosis (1) premature rupture of membranes Qualifiers: PROM onset of labor timing: unspecified duration between rupture of membranes and onset of labor Qualified Code(s): O42.919 - premature rupture of membranes, unspecified as to length of time between rupture and onset of labor, unspecified trimester Is this a current diagnosis for this admission?: Yes (2) Twin gestation in third trimester Qualifiers: Multiple gestation type: dichorionic and diamniotic Qualified Code(s): O30.043 - Twin , dichorionic/diamniotic, third trimester Is this a current diagnosis for this admission?: Yes - Time Time Spent with patient: Less than 15 minutes Anticipated discharge: Other - Plan delivery Monday - Plan Summary Plan Summary: Continue expectant management and deliver Monday.
[2017-03-02] MEDS ORDERED: ZOLPIDEM TARTRATE 5 MG TABLET PO ONE (20:45)
[2017-03-03] MEDS ORDERED: OXYTOCIN/NORMAL SALINE 20 UNIT/1,000 ML RTUINJ IV PRN ×2 (06:03→16:39)
[2017-03-03] MEDS ORDERED: PENICILLIN G POTASSIUM 5,000,000 UNIT in DEXTROSE 5%-WATER 100 ML IV ONE (06:11)
[2017-03-03] MEDS ORDERED: PENICILLIN G-K 5 MILLION UNIT VIAL ONE ×3 (06:14→14:18)
[2017-03-03] MEDS: RINGERS SOLUTION,LACTATED 1,000 ML IV PRN (06:27)
[2017-03-03 06:36] LABS: ABSOLUTE BASOPHILS # (AUTO) 0.1 10^3/uL (0.0-0.2); ABSOLUTE EOSINOPHILS # (AUTO) 0.1 10^3/uL (0.0-0.6); ABSOLUTE LYMPHOCYTES (AUTO) 2.1 10^3/uL (0.5-4.7); ABSOLUTE MONOCYTES (AUTO) 0.9 10^3/uL (0.1-1.4); BASOPHILS % (AUTO) 0.6 % (0-2); EOSINOPHILS % (AUTO) 0.8 % (0-6); HEMATOCRIT 30.4 % (36.0-47.0); HEMOGLOBIN 10.5 g/dL (12.0-15.5); HGB HCT DIFFERENCE 1.1; LYMPHOCYTES % (AUTO) 14.6 % (13-45); MEAN CORPUSCULAR HEMOGLOBIN 30.7 pg (27.0-33.4); MEAN CORPUSCULAR HGB CONC 34.4 g/dL (32.0-36.0); MEAN CORPUSCULAR VOLUME 89 fl (80-97); MONOCYTES % (AUTO) 6.5 % (3-13); RED BLOOD COUNT 3.41 10^6/uL (3.72-5.28); RED CELL DISTRIBUTION WIDTH 13.8 % (11.5-14.0); SEGMENTED NEUTROPHILS % (AUTO) 77.5 % (42-78); WHITE BLOOD COUNT 14.2 10^3/uL (4.0-10.5)
[2017-03-03] MEDS ORDERED: MISOPROSTOL 0.2 MG TABLET ONE (07:28)
[2017-03-03] MEDS ORDERED: LIDOCAINE 1% INJ-PF (10 MG/ML) 30 ML SDV ONE (07:29)
[2017-03-03] MEDS ORDERED: OXYTOCIN/NORMAL SALINE 0 UNIT/0 ML RTUINJ ONE (07:29)
[2017-03-03] MEDS ORDERED: EPHEDRINE SULFATE INJ 50 MG/1 ML AMPULE ONE ×2 (07:56→16:16)
[2017-03-03] MEDS ORDERED: FENTANYL/BUPIVACAINE/NS/PF 200 MCG/100 ML RTUINJ EPI ONE (07:57)
[2017-03-03] MEDS ORDERED: BUPIVACAINE HCL 0.25 % INJ/PF (2.5 MG/1 ML) 30 ML VIAL ONE (07:57)
[2017-03-03] MEDS ORDERED: FENTANYL CITRATE INJ/PF 100 MCG/2 ML AMPUL ONE ×2 (09:24→16:16)
[2017-03-03] MEDS: PENICILLIN G POTASSIUM 2,500,000 UNIT in DEXTROSE 5%-WATER 50 ML IV SCH ×2 (10:13→14:27)
[2017-03-03] MEDS ORDERED: NALBUPHINE HCL INJ 10 MG/1 ML AMPULE ONE (13:28)
[2017-03-03] MEDS ORDERED: NALBUPHINE HCL INJ 10 MG/1 ML AMPULE INJ ONE (13:33)
[2017-03-03] MEDS ORDERED: OXYTOCIN 10 UNIT/ML VIAL ONE (16:16)
[2017-03-03] MEDS ORDERED: MIDAZOLAM 2 MG/2 ML INJ ONE (16:17)
[2017-03-03] MEDS ORDERED: ONDANSETRON HCL INJ/PF 4 MG/2 ML SDV ONE (16:17)
[2017-03-03] MEDS ORDERED: OXYTOCIN/NORMAL SALINE 20 UNIT/1,000 ML RTUINJ ONE ×2 (16:17→17:06)
[2017-03-03] MEDS ORDERED: LIDOCAINE 2% INJ-PF (20 MG/ML) 10 ML AMPUL ONE (16:20)
[2017-03-03] MEDS ORDERED: BENZOCAINE/MENTHOL AEROSOL SPRAY 56 ML TOP PRN (16:39)
[2017-03-03] MEDS ORDERED: DIPH/PERTUSS(ACELL)/TETANUS VAC/PF 0.5 ML SYR (>=10YO) IM PRN (16:39)
[2017-03-03] MEDS ORDERED: ZOLPIDEM TARTRATE 5 MG TABLET PO PRN (16:39)
[2017-03-03] MEDS ORDERED: GLYCERIN/WITCH HAZEL LEAF 1 EACH MED..PAD TP PRN (16:39)
[2017-03-03] MEDS ORDERED: PROMETHAZINE HCL 25 MG SUPP.RECT PR PRN (16:39)
[2017-03-03] MEDS ORDERED: PROMETHAZINE HCL 25 MG TABLET PO PRN (16:39)
[2017-03-03] MEDS ORDERED: DIBUCAINE 1% OINTMENT 28 GM TP PRN (16:39)
[2017-03-03] MEDS ORDERED: MEASLES,MUMPS&RUBELLA VACC/PF 0.5 ML VIAL SUBCUT PRN (16:39)
[2017-03-03] MEDS ORDERED: PROMETHAZINE HCL INJ 25 MG/1 ML VIAL IV PRN (16:39)
[2017-03-03] MEDS ORDERED: DIPHENHYDRAMINE HCL 25 MG CAPSULE PO PRN (16:39)
[2017-03-03] MEDS ORDERED: PSEUDOEPHEDRINE HCL 30 MG TABLET PO PRN (16:39)
[2017-03-03] MEDS ORDERED: METHYLERGONOVINE MALEATE INJ/PF 0.2 MG/1 ML AMPULE ONE (16:46)
--- NOTE | 2017-03-03 17:38 | Delivery Summary ---
Del Sum A-C Datetime Report Generated by CPN: 03/03/2017 17:37 DELIVERY PERSONNEL DELIVERY PERSONNEL: [id number] Delivery Doctor:: Barrington Rojas MD MATERIALS AND PROCESSES MANAGER:: Dr Dowell Labor and Delivery Nurse:: Latesha Savage RNmanager pediatric Nurse:: Rose Newberry Nurse Practitioner:: CAMDEN Ureña Nursery Nurse:: Jacqueline Francis RN Nursery Nurse:: Anuja Huffman Back Hoe Machine Operator/CARRY ALL DRIVER: ST Sarabjit Back Hoe Machine Operator/CARRY ALL DRIVER: Alyssia Kramer CST Additional Personnel: : Clover Guillory RNC MATERNAL INFORMATION Delivery Anesthesia: Epidural Medications After Delivery: Pitocin Bolus-Please Comment; Pitocin Drip 20 Units/1000ml NSS; Methergine 0.2mg IM; Other-Please Comment Meds After Delivery Comment: Cytotec 1000mcg WV Estimated Blood Loss (ml): 200 Maternal Complications: Premature Rupture of Membranes; Other Other Maternal Complications: Twins Provider Comments: pt delivered viable female and secong twin was turned to vertex and delivered LABOR SUMMARY EDC: 04/14/2017 00:00 No. Babies in Womb: 2 Attempted: No Labor Anesthesia: Epidural LABOR INFORMATION Reason for Induction: Premature Rupture of Membranes Onset of Labor: 03/03/2017 08:47 Complete Dilatation: 03/03/2017 15:51 Oxytocin: Induction Group B Beta Strep: unknown Antibiotics # of Doses: 3 Antibiotics Time of Last Dose: 1430 Name of Antibiotic Given: PCN Steroids Given: Full Course; > 24 Hours before Delivery Reason Steroids Not Administered: Not Applicable MEMBRANES Membranes Rupture Method: Spontaneous Rupture of Membranes: 02/15/2017 12:00 Length of Rupture (hr): 389.32 Amniotic Fluid Color: Clear Amniotic Fluid Amount: Moderate Amniotic Fluid Odor: Normal STAGES OF LABOR Stage 1 hr: 7 Stage 1 min: 4 Stage 2 hr: 0 Stage 2 min: 28 Stage 3 hr: 0 Stage 3 min: 9 Total Time in Labor hr: 7 Total Time in Labor min: 41 VAGINAL DELIVERY Episiotomy: Median Laceration #1: Perineal Laceration Extension #1: First Degree Laceration Repair: Yes Laceration Repair Note: 2-0 vivryl CSECTION DELIVERY Primary Indication: N/A Secondary Indication: N/A CSection Incidence: N/A Labor: N/A Elective: N/A CSection Incision: N/A BABY A INFORMATION Infant Delivery Date/Time: 03/03/2017 16:19 Method of Delivery: Vaginal Born in Route : No : N/A Forceps: N/A Vacuum Extraction: N/A Shoulder Dystocia : No PRESENTATION/POSITION BABY A Presentation: Cephalic Cephalic Presentation: Vertex Vertex Position: Right Occipital Anterior Breech Presentation: N/A PLACENTA INFORMATION BABY A Placenta Delivery Time : 03/03/2017 16:28 Placenta Method of Delivery: Manual Removal Placenta Status: Delivered SCORES BABY A Heart Rate 1 min: >100 bpm Resp Effort 1 min: Good Cry Reflex Irritability 1 min: Cough or Sneeze or Pulls Away Muscle Tone 1 min: Active Motion Color 1 min: Blue/Pale Resuscitation Effort 1 min: Tactile Stimulation SCORE 1 MIN: 8 Heart Rate 5 min: >100 bpm Resp Effort 5 min: Good Cry Reflex Irritability 5 min: Cough or Sneeze or Pulls Away Muscle Tone 5 min: Active Motion Color 5 min: Body [place], Extremities Blue Resuscitation Effort 5 min: Tactile Stimulation SCORE 5 MIN: 9 INFORMATION BABY A Gestational Age at Delivery: 34.0 Gestational Status: Late - 34- 36.6 Weeks Outcome : Liveborn Condition : Stable Sex: Female IDENTIFICATION BABY A Verification Date/Time: 03/03/2017 16:58 ID Band Number: [id number] Mother's Name Verified: Yes Infant RN Verifying : D Bellavance RNC Additional Verifying Personnel: N Newberry RN WEIGHT/LENGTH BABY A Infant Birthweight (gm): 1931 Infant Weight (lb): 4 Weight (oz): 4 Length (in): 16.75 Infant Length (cm): 42.55 CORD INFORMATION BABY A No. Cord Vessels: 3 Nuchal Cord : Around Neck x1, Loose Cord Blood Taken: Yes-For Eval (Mom's Blood Type - or O+) Infant Suction: None ASSESSMENT BABY A Complications: Other Infant Complications- Other: PPROM Physical Findings at Delivery: Within Normal Limits Infant Respirations: Appears Normal Skin to Skin: No Mold Mechanic/ALS Called : No Infant Care By: DBebeto Mojica MANAGER ROUTE Transferred To: NICU BABY B INFORMATION Infant Delivery Date/Time: 03/03/2017 16:23 Method of Delivery : Vaginal Born in Route : No : N/A Forceps : N/A Vacuum Extraction: N/A Shoulder Dystocia : No SHOULDER DYSTOCIA BABY B Delivery Date/Time: 03/03/2017 16:23 PRESENTATION/POSITION BABY B Presentation : Cephalic Cephalic Position : Vertex Vertex Position: Right Occipital Anterior Breech Position: N/A ROM/PLACENTA INFO BABY B Rupture of Membranes: 03/03/2017 16:21 Length of Rupture (hr): 0.03 Placenta Delivery Time : 03/03/2017 16:28 Placenta Method of Delivery: Manual Removal Placental Status : Delivered SCORES BABY B Heart Rate 1 min: >100 bpm Resp Effort 1 min: Good Cry Reflex Irritability 1 min: Cough or Sneeze or Pulls Away Muscle Tone 1 min: Active Motion Color 1 min: Blue/Pale Resuscitation Effort 1 min: Tactile Stimulation SCORE 1 MIN: 8 Heart Rate 5 min: >100 bpm Resp Effort 5 min: Good Cry Reflex Irritability 5 min: Cough or Sneeze or Pulls Away Muscle Tone 5 min: Active Motion Color 5 min: Body [place], Extremities Blue Resuscitation Effort 5 min: Tactile Stimulation SCORE 5 MIN: 9 INFORMATION BABY B Gestational Age at Delivery: 34.0 Gestational Status : Late - 34- 36.6 Weeks Infant Outcome : Liveborn Infant Condition : Stable Infant Sex : Male IDENTIFICATION BABY B Verification Date/Time: 03/03/2017 17:00 ID Band Number : [id number] Mother's Name Verified: Yes RN Verifying Infant: , RN and D.Lenorae, RN WEIGHT/LENGTH BABY B Infant Birthweight (gm): 1822 Weight (lb) : 4 Weight (oz): 0 Length (in): 17.75 Length (cm): 45.09 CORD INFORMATION BABY B No. Cord Vessels : 3 Nuchal Cord : N/A Cord Blood Taken : Yes-For Storage (Mom's Blood Type +) Infant Suction : None ASSESSMENT BABY B Infant Complications : None Physical Findings at Delivery: Within Normal Limits Respirations : Appears Normal Skin to Skin: No Mold Mechanic/ALS Called : No Care By : D. Matters MANAGER ROUTE Transfer To: NICU SIGNATURES Signature: with User ID: [email or web address]
[2017-03-03] MEDS ORDERED: IBUPROFEN 800 MG TABLET ONE (18:00)
[2017-03-03] MEDS: IBUPROFEN 800 MG TABLET PO SCH (18:01)
--- NOTE | 2017-03-03 18:52 | Admission Physical ---
Datetime Report Generated by CPN: 03/03/2017 18:52 CURRENT ADMISSION Chief Complaint: Suspected Ruptured Membranes Indication for Induction: Not Applicable Indication for Induction: , Intrauterine ; No Active Labor; Ruptured Membranes Admit Impression- Other: Twin Gestation Admit Plan: Admit to Unit ALLERGIES Medication Allergies: No Medication Allergies: No Known Allergies (02/16/2017) Medication Allergies: No Known Allergies (08/22/2015) Latex: No Latex Allergies OBSTETRICAL HISTORY EDC: 04/14/2017 00:00 : 3 Para: 0 Term: 0 : 0 SAB: 2 IAB: 0 Ectopic: 1 Livin Cesareans: 0 VBACs: 0 Multiple Births: 0 Gestational Diabetes: No Rh Sensitization: No Incompetent Cervix: No ERICA: No Infertility: No ART Treatment: No Uterine Anomaly: No IUGR: No Hx Previous C/S: No Macrosomia: No Hx Loss/Stillborn: No PIH: No Hx : No Placenta Previa/Abruption: No Depression/PP Depression: No PTL/PROM: No Post Hemorrhage: No Current Procedures: Ultrasound Obstetrical History Comments: 2005- miscarriage 2016- ectopic SEE RECORDS Alcohol: No Marijuana : Yes Marijuana Comments: (+) 02/16/17 Cocaine: No Other Illicit Drugs: No Cigarettes: Light Tobacco Smoker. [id number] MEDICAL HISTORY Diabetes: No Blood Transfusion: No Pulmonary Disease (Asthma, TB): No Breast Disease: No Hypertension: No Chalker Soles Surgery: No Heart Disease: No Hosp/Surgery: No Autoimmune Disorder: No Anesthetic Complications: No Kidney Disease: No Abnormal Pap Smear: No Neuro/Epilepsy: No Psychiatric Disorders: No Other Medical Diseases: No Hepatitis/Liver Disease: No Significant Family History: No Varicosities/Phlebitis: No Trauma/Violence : No Thyroid Dysfunction: No INFECTIOUS HISTORY Gonorrhea: No Genital Herpes: No Chlamydia: No Tuberculosis: No Syphilis: No Hepatitis: No HIV/AIDS Exposure: No Rash or Viral Illness: No HPV: No PHYSICAL EXAM General: Normal HEENT: Normal Neurologic: Normal Thyroid: Deferred Heart: Normal Lungs: Normal Breast: Deferred Back: Normal Abdomen: Normal Genitourinary Exam: Normal Extremities: Normal DTRs: Normal Pelvic Type: Adequate Physical Exam Comments: Abdomen is sort and NONTENDER Vital Signs: Reviewed; Within Normal Limits MEMBRANES [place] Results: Positive Membranes: Ruptured Amniotic Fluid Color: Clear FETUS A EGA: 31.6 Monitoring: External US FHR- Baseline: 140 Variability: Moderate 6-25bpm Accelerations: 10X10 FHR Category: Category I Presentation: Vertex Admit Comment: Will admit for PPROM and Twin Gestation Will start Magnesium Sulfate, no signs of infection, for 12 hours per [facility] MFM recommendations Will give Celestone and IV Abx Will deliever if maternal or conditions FETUS B Monitoring: External US Monitoring: External US Monitoring: External US Monitoring: External US Monitoring: External US Monitoring: External US Monitoring: External US Monitoring: External US Monitoring: External US Monitoring: External US Monitoring: External US Monitoring: External US Monitoring: External US Monitoring: External US Monitoring: External US Monitoring: External US Monitoring: External US Monitoring: External US Monitoring: External US Monitoring: External US Monitoring: External US Monitoring: External US Monitoring: External US Monitoring: External US Monitoring: External US Monitoring: External US Monitoring: External US Monitoring: External US Monitoring: External US Monitoring: External US Monitoring: External US Monitoring: External US Monitoring: External US Monitoring: External US Monitoring: External US Monitoring: External US Monitoring: External US Monitoring: External US Monitoring: External US Monitoring: External US Monitoring: External US Monitoring: External US Monitoring: External US Monitoring: External US Monitoring: External US Monitoring: External US Monitoring: External US Monitoring: External US Monitoring: External US Monitoring: External US Monitoring: External US Monitoring: External US Monitoring: External US Monitoring: External US Monitoring: External US Monitoring: External US Monitoring: External US Monitoring: External US Monitoring: External US Monitoring: External US Monitoring: External US Monitoring: External US Monitoring: External US Monitoring: External US Monitoring: External US Monitoring: External US Monitoring: External US Monitoring: External US Monitoring: External US Monitoring: External US Monitoring: External US Monitoring: External US Monitoring: External US Monitoring: External US Monitoring: External US Monitoring: External US Monitoring: External US Monitoring: External US Monitoring: External US Monitoring: External US Monitoring: External US Monitoring: External US Monitoring: External US Monitoring: External US Monitoring: External US Monitoring: External US Monitoring: External US Monitoring: External US Monitoring: External US Monitoring: External US Monitoring: External US Monitoring: External US Monitoring: External US Monitoring: External US Monitoring: External US Monitoring: External US Monitoring: External US Monitoring: External US Monitoring: External US Monitoring: External US Monitoring: External US Monitoring: External US Monitoring: External US Monitoring: External US Monitoring: External US Monitoring: External US Monitoring: External US Monitoring: External US Monitoring: External US Monitoring: External US PLANS FOR LABOR AND DELIVERY Labor and Delivery: None Pain Management: Epidural Feeding Preference: Breast Benefit of Breast Feed Discussed: Yes INFORMED CONSENT Signature: with User ID: [email or web address]
[2017-03-03] MEDS: ACETAMINOPHEN WITH CODEINE #3 TABLET PO PRN (19:12)
[2017-03-03] MEDS: FAMOTIDINE 20 MG TABLET PO SCH (22:30)
[2017-03-04] MEDS: IBUPROFEN 800 MG TABLET PO SCH ×3 (05:25→22:33)
[2017-03-04] MEDS: DOCUSATE SODIUM 100 MG CAPSULE PO SCH ×3 (06:43→18:39)
[2017-03-04] MEDS: FERROUS SULFATE 325 MG TABLET PO SCH ×3 (06:43→18:39)
[2017-03-04] MEDS: PENICILLIN G POTASSIUM 2,500,000 UNIT in DEXTROSE 5%-WATER 50 ML IV SCH ×2 (06:43→06:46)
[2017-03-04 07:51] LABS: HEMATOCRIT 24.9 % (36.0-47.0); HEMOGLOBIN 8.6 g/dL (12.0-15.5); HGB HCT DIFFERENCE 0.9; MEAN CORPUSCULAR HEMOGLOBIN 30.8 pg (27.0-33.4); MEAN CORPUSCULAR HGB CONC 34.5 g/dL (32.0-36.0); MEAN CORPUSCULAR VOLUME 89 fl (80-97); RED BLOOD COUNT 2.79 10^6/uL (3.72-5.28); RED CELL DISTRIBUTION WIDTH 13.6 % (11.5-14.0); WHITE BLOOD COUNT 16.3 10^3/uL (4.0-10.5)
[2017-03-04] MEDS: PRENATAL VITAMIN W DHA CAPSULE PO SCH (10:00)
[2017-03-04] MEDS: FAMOTIDINE 20 MG TABLET PO SCH ×2 (10:01→22:32)
[2017-03-04] MEDS: SENNOSIDES/DOCUSATE 8.6-50 MG 1 EACH TABLET PO SCH (10:02)
--- NOTE | 2017-03-04 11:11 | PDOC PROGRESS REPORT ---
Subjective-OB Subjective: Post Delivery Day: 1 32 year old. Denies any needs at this time, tolerating diet, lochia is stable, voiding without difficulty, pain well controlled. Physical Exam (OB) Vital Signs: Temp Pulse Resp BP Pulse Ox 98.7 F 100 15 120/72 98 03/04/17 07:25 03/04/17 07:25 03/04/17 07:25 03/04/17 07:25 03/04/17 07:25 - Lochia Lochia Amount: Small 10-25 ml Lochia Color: Rubra/Red - Abdomen Description: Tender, Soft Hernia Present: No Fundal Description: Firm Fundal Height: u/u - u/2 Objective-Diagnostic Laboratory: 03/04/17 06:57 03/04/17 06:57 WBC 16.3 H RBC 2.79 L Hgb 8.6 L Hct 24.9 L MCV 89 MCH 30.8 MCHC 34.5 RDW 13.6 Plt Count 223 Assessment and Plan(PN) - Assessment and Plan (1) Twin delivered vaginally Is this a current diagnosis for this admission?: Yes Plan: routine pp care (2) Acute blood loss anemia Is this a current diagnosis for this admission?: Yes Plan: ferrous sulfate increase dietary iron (3) premature rupture of membranes Qualifiers: PROM onset of labor timing: unspecified duration between rupture of membranes and onset of labor Qualified Code(s): O42.919 - premature rupture of membranes, unspecified as to length of time between rupture and onset of labor, unspecified trimester Is this a current diagnosis for this admission?: Yes (4) Twin gestation in third trimester Qualifiers: Multiple gestation type: dichorionic and diamniotic Qualified Code(s): O30.043 - Twin , dichorionic/diamniotic, third trimester Is this a current diagnosis for this admission?: Yes - Time Spent with Patient Time with patient: Less than 15 minutes Critical Time spent with patient: Less than 15 minutes Medications reviewed and adjusted accordingly: Yes - Disposition Anticipated Discharge: Home, Other - Plan delivery Monday Within: within 48 hours
[2017-03-04] MEDS: ACETAMINOPHEN WITH CODEINE #3 TABLET PO PRN ×2 (13:39→20:30)
[2017-03-05] MEDS: IBUPROFEN 800 MG TABLET PO SCH (05:22)
--- NOTE | 2017-03-05 08:53 | PDOC DISCHARGE SUMMARY ---
Final Diagnosis Discharge Date: 03/05/17 - Final Diagnosis (1) Twin delivered vaginally Is this a current diagnosis for this admission?: Yes (2) Acute blood loss anemia Is this a current diagnosis for this admission?: Yes (3) premature rupture of membranes Is this a current diagnosis for this admission?: Yes (4) Twin gestation in third trimester Is this a current diagnosis for this admission?: Yes Discharge Data - Discharge Medication Home Medications: Aspirin 1 tab DAILY 02/16/17 Calcium Carbonate [Calcium] 1 tab DAILY 02/16/17 Cetirizine HCl [Zyrtec] 1 tab DAILY 02/16/17 105/Iron/Folic AC/Dha [Prena1 True Combo Pack] 1 tab DAILY 02/16/17 Acetaminophen with Codeine [Tylenol #3 Tablet] 2 each PO Q4HP PRN #20 tablet Docusate Sodium [Colace 100 mg Capsule] 100 mg PO BID #60 capsule 03/05/17 Ferrous Sulfate [Feosol 325 mg Tablet] 325 mg PO BID #60 tablet 03/05/17 Ibuprofen [Motrin 800 mg Tablet] 800 mg PO Q8 #60 tablet 03/05/17 Gestational Age: 34.0 Reason(s) for Admission: PROM Procedures: NST Intrapartum Procedure(s): Spontaneous Vaginal Delivery Complication(s): Laceration-Perineal Laceration-Degree: 1st - Data Baby 1 Female at 1 minute: 8 at 5 minutes: 9 Weight: 1.928 kg Home with Mother: No Complications: Yes - pre term Baby 2 Male at 1 minute: 8 at 5 minutes: 9 Weight: 1822 kg Home with Mother: No Complications: Yes - pre term - Diagnosis Test Laboratory: Temp Pulse Resp BP Pulse Ox 97.5 F 91 16 118/74 100 03/05/17 07:55 03/05/17 07:55 03/05/17 07:55 03/05/17 07:55 03/05/17 07:55 02/16/17 02/17/17 02/18/17 18:12 01:20 05:59 RBC 3.61 L 3.40 L Hgb 11.3 L 10.4 L Hct 32.2 L 30.4 L Urine Opiates Screen NEGATIVE 02/19/17 02/25/1717 05:56 10:53 05:42 RBC 2.94 L 3.26 L 3.27 L Hgb 9.2 L 10.0 L 10.1 L Hct 26.2 L 29.0 L 28.9 L Urine Opiates Screen 02/28/17 03/03/17 03/04/17 06:50 06:28 06:57 RBC 3.27 L 3.41 L 2.79 L Hgb 10.0 L 10.5 L 8.6 L Hct 29.0 L 30.4 L 24.9 L Urine Opiates Screen - Discharge information/Instructions Discharge Activity: Activity As Tolerated, Balance Activity w/Rest, No Lifting Over 10 Pounds, No Lifting/Push/Pulling, Pelvic Rest, No tub bath Discharge Diet: Regular Disposition: HOME, SELF-CARE Follow [facility]: [facility] in: 4, Weeks
[2017-03-05 08:57] VITALS: BP 121/68
[2017-03-05] MEDS: PRENATAL VITAMIN W DHA CAPSULE PO SCH (09:02)
[2017-03-05] MEDS: SENNOSIDES/DOCUSATE 8.6-50 MG 1 EACH TABLET PO SCH (09:02)
[2017-03-05] MEDS: FERROUS SULFATE 325 MG TABLET PO SCH (09:02)
[2017-03-05] MEDS: DOCUSATE SODIUM 100 MG CAPSULE PO SCH (09:02)
[2017-03-05] MEDS: FAMOTIDINE 20 MG TABLET PO SCH (09:02)
== END 2017-03-05 12:26 | disposition home or self-care (01) | DRG 775 ==
LOC: LC 16:47 → LR 18:09 → 2S 02-18 07:44 → LR 03-03 05:47 → 2S 03-03 18:45
PROVIDERS: ADMIT Obstetrics & Gynecology Gynecology; ATTEND Obstetrics & Gynecology Gynecology
PROC: 10E0XZZ Delivery of Products of Conception, External Approach (ICD-10-PCS; principal; 2017-03-03)
PROC: 0W8NXZZ Division of Female Perineum, External Approach (ICD-10-PCS; 2017-03-03)
PROC: 0HQ9XZZ Repair Perineum Skin, External Approach (ICD-10-PCS; 2017-03-03)
DX: O42.113 Preterm premature rupture of membranes, onset of labor more than 24 hours following rupture, third trimester (principal); O99.324 Drug use complicating childbirth; D62 Acute posthemorrhagic anemia; O30.043 Twin pregnancy, dichorionic/diamniotic, third trimester; O40.3XX2 Polyhydramnios, third trimester, fetus 2; O69.81X1 Labor and delivery complicated by cord around neck, without compression, fetus 1; O32.1XX2 Maternal care for breech presentation, fetus 2; O66.0 Obstructed labor due to shoulder dystocia; O70.0 First degree perineal laceration during delivery; O99.02 Anemia complicating childbirth; O99.334 Smoking (tobacco) complicating childbirth; F17.210 Nicotine dependence, cigarettes, uncomplicated; F12.90 Cannabis use, unspecified, uncomplicated; Z37.2 Twins, both liveborn; Z3A.31 31 weeks gestation of pregnancy
CPT/HCPCS: 36415; 59025; 76802; 76815; 76819; 80307; 81001; 84112; 85025; 85027; 86592; 86762; 86850; 86900; 86901; 87086; 88307; 90715; G0480; J0290; J0702; J1364; J2210; J2250; J2300; J2405; J2540; J2590; J3010; J3475; J3490; S0183